=== PATIENT | female | born 2000 | race Two or more races ===

== ENCOUNTER 2023-10-13 11:45 | Inpatient (IN) | payer MEDICAID ==
[~2023-10-13] VITALS: Ht 160 cm; Wt 86.5 kg
[2023-10-13] MEDS: proCHLORperazine 10 MG/2 ml inj IV ONE (11:50)
[2023-10-13] MEDS ORDERED: ketorolac tromethamine 15mg/ml inj. IV ONE (11:50)
[2023-10-13] MEDS: normal saline 1000ML IV soln IVB ONE (12:19)
[2023-10-13 12:21] LABS: BASOPHILS % (AUTO) 0.4 % (0-1); EOSINOPHILS # (AUTO) 0.1 X10'3 (0-0.9); EOSINOPHILS % (AUTO) 1.4 % (0-6); HEMATOCRIT 43.4 % (35.0-45.0); HEMOGLOBIN 15.2 g/dl (12.0-16.0); LYMPHOCYTES # (AUTO) 1.5 X10'3 (1.1-4.8); LYMPHOCYTES % (AUTO) 18.5 % (21-51); MEAN CORPUSCULAR HEMOGLOBIN 30.3 PG (27.0-31.0); MEAN CORPUSCULAR HGB CONC 34.9 g/dL (33.0-36.5); MEAN CORPUSCULAR VOLUME 86.7 FL (78-98); MEAN PLATELET VOLUME 7.5 FL (7.4-10.4); MONOCYTES # (AUTO) 0.4 X10'3 (0-0.9); MONOCYTES % (AUTO) 4.5 % (2-12); NEUTROPHILS # (AUTO) 6.2 X10'3 (1.8-7.7); NEUTROPHILS % (AUTO) 75.2 % (42-75); PLATELET COUNT 423 X10'3 (140-440); RED BLOOD COUNT 5.01 X10'6 (4.20-5.60); RED CELL DISTRIBUTION WIDTH 12.5 % (11.5-14.5); WHITE BLOOD COUNT 8.3 X10'3 (4.5-11.0)
[2023-10-13] MEDS: diphenhydrAMINE 50 mg/ml inj IV ONE (12:25)
[2023-10-13 12:40] LABS: ALANINE AMINOTRANSFERASE 68 U/L (12-78); ALBUMIN 3.9 G/DL (3.4-5.0); ALBUMIN/GLOBULIN RATIO 0.9 (1.1-1.5); ALKALINE PHOSPHATASE 57 IU/L (46-116); ANION GAP 11 (8-16); ASPARTATE AMINO TRANSFERASE 44 U/L (10-37); BILIRUBIN,TOTAL 0.4 MG/DL (0.1-1.0); BLOOD UREA NITROGEN 12 MG/DL (7-18); BUN/CREATININE RATIO 14.3 (10.0-20.0); CALCIUM 9.2 MG/DL (8.5-10.1); CHLORIDE 107 MMOL/L (99-107); CREATININE 0.84 MG/DL (0.40-0.90); GLUCOSE 96 MG/DL (70-104); POTASSIUM 4.1 MMOL/L (3.5-5.1); SODIUM 145 MMOL/L (135-145); TOTAL CARBON DIOXIDE 26.6 MMOL/L (24-32); TOTAL PROTEIN 8.4 G/DL (6.4-8.2); eCRCL 87 ML/MIN; eGFR 85 ML/MIN
[2023-10-13] MEDS ORDERED: magnesium Cl slow-release 64mg tablet PO PRN (12:45)
[2023-10-13] MEDS: LidoCAINE 2% Topical Jelly 11mL syringe (UROJET) TOP ONE (12:45)
[2023-10-13] MEDS ORDERED: potassium Cl 20 mEq SR tablet PO PRN ×2 (12:45)
[2023-10-13] MEDS ORDERED: potassium Cl 40MEQ/1/2NS 520ml 520 ML IV PRN (12:45)
[2023-10-13] MEDS: normal saline 1000ml 1,000 ML IV SCH (12:45)
[2023-10-13] MEDS ORDERED: mag hydrox/Alum hydrox/simeth 30ml oral suspension PO PRN (12:45)
[2023-10-13] MEDS ORDERED: magnesium 4gm in 100ml NS 100 ML IV PRN (12:45)
[2023-10-13] MEDS ORDERED: acetaminophen 325mg tablet PO PRN (12:45)
[2023-10-13] MEDS ORDERED: ondansetron/PF 4mg/2ml inj IV PRN (12:45)
[2023-10-13] MEDS ORDERED: magnesium hydroxide 30ml (MOM) UD suspension PO PRN (12:45)
[2023-10-13] MEDS: morphine 2 MG/ML inj. syringe IV PRN (13:03)
[2023-10-13] MEDS: CefTRIAXone/D5W-Rocephin 1gm 50 ML IV ONE (13:46)
[2023-10-13 15:27] LABS: BILIRUBIN,URINE NEGATIVE (Neg); CLARITY,URINE SLIGHTLY CLOUDY (Clear); COLOR,URINE YELLOW (Yellow); GLUCOSE, URINE NEGATIVE (Neg); KETONES,URINE NEGATIVE (Neg); LEUKOCYTE ESTERASE ,URINE TRACE (Neg); NITRITES, URINE NEGATIVE (Neg); OCCULT BLOOD,URINE SMALL (Neg); PH,URINE 6.5 (4.8-8.0); PROTEIN,URINE NEGATIVE (Neg); UROBILINOGEN,URINE 0.2 E.U/dL (0.2-1.0)
[2023-10-13 15:28] LABS: UA COLLECTION TYPE NON-SPECIFIED
[2023-10-13 15:34] LABS: SQUAMOUS EPITHELIAL CELL,UR MANY /LPF (FEW); WBC,URINE 20-30 /HPF (0-4)
[2023-10-13 15:35] LABS: BACTERIA,URINE FEW /HPF (Neg)
[2023-10-13] MEDS ORDERED: SEMA0.258 (17:11)
[2023-10-13] MEDS ORDERED: BLOO-1948 (17:11)
[2023-10-13 20:30] LABS: HEMOGLOBIN A1C 5.5 % (4.5-6.2)
[2023-10-13 22:00] VITALS: BP 118/80; PULSE 94; RESP 16; TEMP 97.8; O2SAT 99
[2023-10-14 06:00] VITALS: BP 114/57; PULSE 91; RESP 14; TEMP 97.1; O2SAT 94
[2023-10-14 06:03] LABS: BASOPHILS % (AUTO) 0.6 % (0-1); EOSINOPHILS # (AUTO) 0.3 X10'3 (0-0.9); EOSINOPHILS % (AUTO) 4.5 % (0-6); HEMATOCRIT 40.7 % (35.0-45.0); HEMOGLOBIN 13.8 g/dl (12.0-16.0); LYMPHOCYTES # (AUTO) 2.2 X10'3 (1.1-4.8); LYMPHOCYTES % (AUTO) 31.9 % (21-51); MEAN CORPUSCULAR HEMOGLOBIN 29.7 PG (27.0-31.0); MEAN CORPUSCULAR VOLUME 87.5 FL (78-98); MEAN PLATELET VOLUME 7.6 FL (7.4-10.4); MONOCYTES # (AUTO) 0.6 X10'3 (0-0.9); MONOCYTES % (AUTO) 7.9 % (2-12); NEUTROPHILS # (AUTO) 3.9 X10'3 (1.8-7.7); NEUTROPHILS % (AUTO) 55.1 % (42-75); PLATELET COUNT 358 X10'3 (140-440); RED BLOOD COUNT 4.65 X10'6 (4.20-5.60); RED CELL DISTRIBUTION WIDTH 12.6 % (11.5-14.5)
[2023-10-14 06:12] LABS: ANION GAP 9 (8-16); CHLORIDE 108 MMOL/L (99-107); GLUCOSE 84 MG/DL (70-104); POTASSIUM 3.7 MMOL/L (3.5-5.1); SODIUM 143 MMOL/L (135-145); TOTAL CARBON DIOXIDE 25.9 MMOL/L (24-32)
[2023-10-14 06:13] LABS: ALBUMIN 3.3 G/DL (3.4-5.0); BLOOD UREA NITROGEN 14 MG/DL (7-18); BUN/CREATININE RATIO 14.7 (10.0-20.0); CALCIUM 8.4 MG/DL (8.5-10.1); CREATININE 0.95 MG/DL (0.40-0.90); eCRCL 77 ML/MIN; eGFR 74 ML/MIN
[2023-10-14 06:30] VITALS: O2SAT 99
[2023-10-14 10:00] VITALS: BP 113/71; PULSE 90; RESP 18; TEMP 97.9; O2SAT 99
[2023-10-14 10:15] VITALS: RESP 18; O2SAT 99
[2023-10-14] MEDS: CefTRIAXone 2gm/D5W 50ml BAG 50 ML IV SCH (10:31)
[2023-10-14] MEDS: tamsulosin 0.4mg capsule PO SCH (10:31)
[2023-10-14] MEDS ORDERED: FLO0.4C PO (12:24)
[2023-10-14] MEDS ORDERED: CEFD300C21 PO (12:26)
== END 2023-10-14 13:09 | disposition home or self-care (01) | DRG 465 ==
LOC: ER 11:45 → ED HOLD 12:45 → SUR 3N 21:49
PROVIDERS: ADMIT Family Medicine; ATTEND Family Medicine
DX: N13.2 Hydronephrosis with renal and ureteral calculous obstruction (principal); E11.9 Type 2 diabetes mellitus without complications; F32.A Depression, unspecified; E28.2 Polycystic ovarian syndrome; E66.9 Obesity, unspecified; Z68.33 Body mass index [BMI] 33.0-33.9, adult; Z91.040 Latex allergy status; Z91.018 Allergy to other foods
CPT/HCPCS: 36415; 80048; 80053; 81001; 82948; 83036; 85025; 87081; 99285; G0378; J0696; J7030